=== PATIENT | male | born 1990 | race African-American/Black ===

== ENCOUNTER 2022-10-12 08:21 | Emergency (ER) | payer OTHER ==
[~2022-10-12] VITALS: Ht 162.6 cm; Wt 66.9 kg
[2022-10-12 10:01] VITALS: BP 139/97
[2022-10-12] MEDS ORDERED: AMOX875T2 PO (10:18)
== END 2022-10-12 10:40 | disposition home or self-care (01) ==
LOC: M ED 08:21
DX: H66.001 Acute suppurative otitis media without spontaneous rupture of ear drum, right ear (principal)